=== PATIENT | male | born 1995 | race Caucasian/White ===

== ENCOUNTER 2017-04-30 22:50 | Emergency (ER) | payer SELFPAY ==
[~2017-04-30] VITALS: Ht 185.4 cm; Wt 149.7 kg
[~2017-04-30 22:50] MED LIST: DPH25C; EPIN0.3P2 IM; PRD20T PO
--- NOTE | 2017-05-01 00:26 | ED Lower Extremity ---
General Chief Complaint: Lower Extremity Stated Complaint: ANKLE Nursing Triage Note: PT TO ED 4 W/ C/O LT ANKLE PAIN, X1 MONTH, WORSE TODAY AFTER TRIPPING. Nursing Sepsis Screen: No Definite Risk Source: patient Exam Limitations: no limitations History of Present Illness Time seen by provider: 00:10 Initial Comments Here with report of left ankle pain for a month. He was seen at [facility] and was noted to have a negative x-ray. He does have frequent sprains Tuesday gave him a gel ankle splint. He states that he has continued pain. He reports that the pain has been bad enough that he is actually taking 4 Aleve every 6 hours and has been doing that for the last 2 weeks. He states that's what it took to get the pain gone. He was informed that this is a dangerous dosing habit and to not do that anymore. Patient verbalize understanding. States that he recently 3 rolled his ankle and that is making the pain worse. Onset: other (one month) Severity: moderate Pain/Injury Location: left ankle Method of Injury: twisted Modifying Factors: Improves With Immobilization, Worse With Movement Allergies and Home Medications Allergies Coded Allergies: No Known Drug Allergies (Unverified , 02/24/10) Home Medications Diphenhydramine Hcl 25 Mg Cap, (Reported) Epinephrine 0.3 Mg/0.3/Syringe Pen.injctr, 0.3 MG IM UD, #1 Ref 0 Prescribed by: FUNMILAYO PRESTON MD on 02/24/102144 Prednisone 20 Mg Tab, 20 MG PO UD, #24 Ref 0 3 TABS QDAY X 4 DAYS, 2 TABS QDAY X 4 DAYS, 1 TAB QDAY X 4 DAYS Prescribed by: FUNMILAYO PRESTON MD on 02/24/102104 Constitutional: see HPI, No chills, No fever Respiratory: no symptoms reported Cardiovascular: no symptoms reported Musculoskeletal: see HPI, joint pain, joint swelling Skin: No change in color, No lesions Psychiatric/Neurological: No Symptoms Reported Past Hqbsrtm-Zbdshz-Hduzfr Hx Patient Social History Alcohol Use: Denies Use Recreational Drug Use: No Smoking Status: Never a Smoker Recent Foreign Travel: No Contact w/Someone Who Travel: No Recent Infectious Disease Expo: No Recent Hopitalizations: No Surgeries HX Surgeries: Yes Respiratory Hx Respiratory Disorders: No Cardiovascular Hx Cardiac Disorders: No Neurological Hx Neurological Disorders: No Genitourinary Hx Genitourinary Disorders: No Gastrointestinal Hx Gastrointestinal Disorders: No Musculoskeletal Hx Musculoskeletal Disorders: No Endocrine Hx Endocrine Disorders: No HEENT HX ENT Disorders: No Cancer Hx Cancer: No Reviewed Nursing Assessment Reviewed/Agree w Nursing PMH: Yes Family Medical History Significant Family History: No Pertinent Family Hx Physical Exam Vital Signs Vital Sign - Last 12Hours 04/30/17 23:17 Temp 97.8 Pulse 84 Resp 20 B/P (MAP) 148/91 Pulse Ox 99 O2 Delivery Room Air Capillary Refill : Less Than 3 Seconds General Appearance: WD/WN, no apparent distress Cardiovascular: regular rate, rhythm, no murmur Respiratory: lungs clear, normal breath sounds Gastrointestinal: non tender, soft Ankles: left ankle soft tissue tenderness, left ankle swelling, left ankle other (lateral aspect symptoms to the left ankle.) Neurologic/Psychiatric: alert, oriented x 3 Skin: normal color, warm/dry Progress/Results/Core Measures Results/Orders Lab Results Laboratory Tests Test 05/01/17 00:27 Range/Units Sodium Level 143 135-145 MMOL/L Potassium Level 4.2 3.6-5.0 MMOL/L Chloride Level 110 H 98-107 MMOL/L Carbon Dioxide Level 23 21-32 MMOL/L Anion Gap 10 5-14 MMOL/L Blood Urea Nitrogen 18 7-18 MG/DL Creatinine 0.92 0.60-1.30 MG/DL Estimat Glomerular Filtration Rate > 60 BUN/Creatinine Ratio 20 Glucose Level 81 70-105 MG/DL Calcium Level 9.5 8.5-10.1 MG/DL My Orders Orders - JEANETTE SAENZ MD Ankle, Left, 3 Views (04/30/17 23:30) Basic Metabolic Panel (05/01/17 00:20) Rx-Tramadol Hcl (Rx-Ultram) (05/01/17 01:08) Vital Signs/I&O Vital Sign - Last 12Hours 04/30/17 23:17 Temp 97.8 Pulse 84 Resp 20 B/P (MAP) 148/91 Pulse Ox 99 O2 Delivery Room Air Blood Pressure Mean: 110 Progress Note : Progress Note Seen and evaluated. X-ray left ankle. Due to concerns related to kidney dysfunction and overdose of Naprosyn, BMP ordered. Monitor patient. Patient counseled extensively on medication use. 0110: Labs reviewed and no acute kidney dysfunction noted. Discharged home with return precautions. Patient verbalize understanding instructions and agreement with plan. Departure Impression Impression: Primary Impression: Sprain of left ankle Qualified Codes: S93.402A - Sprain of unspecified ligament of left ankle, initial encounter Disposition: HOME, SELF-CARE Condition: Stable Departure-Patient Inst. Decision time for Depature: 01:13 Referrals: DARREL STONE MD (PCP/Family) Primary Care Physician Patient Instructions: Ankle Sprain (DC) Add. Discharge Instructions: All discharge instructions reviewed with patient and/or family. Voiced understanding. You may take Aleve (Naprosyn) 2 tablets twice daily as needed for pain. You may take Tylenol 1000 mg every 8 hours as needed for pain. Take tramadol as prescribed. Do not take medicines more than what is prescribed or recommended as this is dangerous. Follow up with [facility] for recheck and further evaluation and potentially referral to orthopedic surgeon for further evaluation. Return for worse pain, fever, vomiting, weakness, breathing problems or other concerns as needed. Scripts Tramadol HCl (Tramadol HCl) 50 Mg Tablet 50 MG PO Q6H Y for PAIN, #20 TAB 0 Refills Prov: JEANETTE SAENZ MD 05/01/17 JEANETTE SAENZ MD May 01, 2017 00:26
[2017-05-01 00:58] LABS: ANION GAP 10 MMOL/L (5-14); BLOOD UREA NITROGEN 18 MG/DL (7-18); BUN/CREATININE RATIO 20; CALCIUM 9.5 MG/DL (8.5-10.1); CARBON DIOXIDE 23 MMOL/L (21-32); CHLORIDE 110 MMOL/L (98-107); CREATININE SERUM 0.92 MG/DL (0.60-1.30); GFR ESTIMATED > 60; GLUCOSE 81 MG/DL (70-105); POTASSIUM 4.2 MMOL/L (3.6-5.0); SODIUM 143 MMOL/L (135-145)
[2017-05-01] MEDS ORDERED: RX-TRAMADOL 50 MG (ULTRAM) TAB PPK#4 PO STA (01:08)
[2017-05-01] MEDS ORDERED: TRAM50TA2 PO (01:15)
[2017-05-01 01:25] VITALS: BP 0/0
--- NOTE | 2017-05-01 09:02 | Diagnostic Imaging Report ---
INDICATION: Left ankle pain. FINDINGS: Ankle mortise is in good alignment. Articulating surfaces are smooth. Joint spaces are well-preserved. No fractures demonstrated. No soft tissue swelling. IMPRESSION: Normal left ankle. Dictated by: Dictated on workstation # [id number]
== END 2017-05-01 01:25 | disposition home or self-care (01) ==
LOC: EDUNIT# 22:50 → ER 22:52
DX: S93.402A Sprain of unspecified ligament of left ankle, initial encounter (principal); X50.0XXA Overexertion from strenuous movement or load, initial encounter
CPT/HCPCS: 36415; 73610; 80048; 99283

== ENCOUNTER → 2021-04-16 | Outpatient (REF) ==
[~2021-04-16] MED LIST changes: +TRM50T PO
--- NOTE | 2021-04-16 10:41 | Diagnostic Imaging Report ---
INDICATION: Left knee pain 3 views of left knee show no fracture, dislocation or other acute abnormalities. IMPRESSION: Negative left knee. Dictated by: Dictated on workstation # [id number]
== END ==
LOC: OCC 10:09
PROVIDERS: ATTEND Family Medicine
DX: M25.562 Pain in left knee (principal)
CPT/HCPCS: 73562